=== PATIENT | female | born 1980 | race Caucasian/White ===

== ENCOUNTER 2021-06-24 11:00 | Outpatient (RCR) | payer OTHER, SELFPAY | END 2021-09-10 14:02 | disposition home or self-care (01) | LOC: HO.PT 11:00 | PROVIDERS: PCP Internal Medicine; Visit Provider Advanced Practice Midwife | DX: N39.3 Stress incontinence (female) (male) (principal) | CPT/HCPCS: 97112; 97162; 97530 ==